=== PATIENT | female | born 1960 | race American Indian/Alaskan Native ===

== ENCOUNTER → 2019-02-12 | Outpatient (CLI) | payer OTHER ==
[~2019-02-12] MED LIST: ACET500; ASCO250CH PO; Bactrim Ds Tab1 EACH PO; CYCL10 PO; FISH1000 PO; LEVSOD50 PO; Norco 5-325 Ta1 EACH PO; VIRT PO; Zofran4 MG PO
== END | disposition home or self-care (01) ==
LOC: LAB SHORT 08:18 → PLD 08:18
DX: R93.89 Abnormal findings on diagnostic imaging of other specified body structures (principal)
CPT/HCPCS: 88305

== ENCOUNTER 2019-08-24 21:28 | Emergency (ER) | payer OTHER ==
[~2019-08-24] VITALS: Ht 154.9 cm; Wt 70.8 kg
[2019-08-24] MEDS ORDERED: B Complex-Foli1 EACH PO (21:47)
[2019-08-24] MEDS ORDERED: LEVSOD25 PO (21:48)
[2019-08-24] MEDS ORDERED: MONT10T PO (21:48)
[2019-08-24] MEDS ORDERED: ASCO500 PO (21:48)
[2019-08-24 21:54] LABS: BASOPHILS ABSOLUTE AUTO 0.05 K/mm3 (0.00-0.23); BASOPHILS PERCENT AUTO 1 % (0-2); EOSINOPHILS ABSOLUTE AUTO 0.21 K/mm3 (0.00-0.68); EOSINOPHILS PERCENT AUTO 2 % (0-6); Hemoglobin 10.4 g/dL (11.5-16.0); IMMATURE GRAN ABSOLUTE AUTO 0.04 K/mm3 (0.00-0.10); IMMATURE GRAN PERCENT AUTO 0 % (0-1); LYMPHOCYTES ABSOLUTE AUTO 4.12 K/mm3 (0.84-5.20); LYMPHOCYTES PERCENT AUTO 39 % (21-46); MONOCYTES ABSOLUTE AUTO 0.86 K/mm3 (0.16-1.47); MONOCYTES PERCENT AUTO 8 % (4-13); Mean Corpuscular HGB 19.1 pg (26.0-34.0); Mean Corpuscular HGB Conc 30.6 g/dL (31.5-36.5); Mean Corpuscular Volume 63 fL (80-100); Mean Platelet Volume 9.5 fL (9.1-12.4); NEUTROPHILS ABSOLUTE AUTO 5.38 K/mm3 (1.96-9.15); NEUTROPHILS PERCENT AUTO 50 % (41-73); Platelet Count 335 K/mm3 (150-400); RDW Coefficient Variation 18.6 % (11.7-14.2); RDW Standard Deviation 37.2 fL (35.1-46.3); Red Blood Cell Count 5.44 M/mm3 (3.80-5.20); White Blood Cell Count 10.66 K/mm3 (4.00-11.30)
[2019-08-24 22:22] LABS: Alanine Aminotransfer (ALT/SGP 23 U/L (12-78); Albumin/Globulin Ratio 1.1 (0.8-1.8); Alk Phos 65 U/L (50-136); Anion Gap 6 mmol/L (6-16); Aspartate Aminotrans (AST/SGOT 14 U/L (12-37); Bilirubin, Total 0.5 mg/dL (0.1-1.0); Blood Urea Nitrogen 17 mg/dL (8-24); Bun/Creatinine Ratio 27.8 (12.0-20.0); CO2, Blood 26 mmol/L (21-32); Calcium, Blood 8.6 mg/dL (8.5-10.1); Chloride, Blood 109 mmol/L (98-108); Creatinine, Blood 0.61 mg/dL (0.40-1.00); Globulin, Blood 3.6 g/dL (2.2-4.0); Glomerular Filtration Rate >60 (60-); Glucose, Blood 116 mg/dL (70-99); Potassium, Blood 4.1 mmol/L (3.5-5.5); Sodium, Blood 141 mmol/L (136-145); Total Protein, Blood 7.6 g/dL (6.4-8.2); Troponin I <0.015 ng/mL (0.000-0.040)
== END 2019-08-24 23:29 | disposition home or self-care (01) ==
LOC: ER 21:28
PROVIDERS: Emergency Medicine
DX: R07.9 Chest pain, unspecified (principal); E03.9 Hypothyroidism, unspecified; D64.9 Anemia, unspecified; Z79.899 Other long term (current) drug therapy
CPT/HCPCS: 36415; 71045; 80053; 84484; 85025; 85379; 93005; 93010; 99285-25; A9270-GY

== ENCOUNTER 2020-05-08 02:28 | Emergency (ER) | payer OTHER ==
[~2020-05-08] VITALS: Ht 154.9 cm; Wt 70.3 kg
[~2020-05-08 02:28] MED LIST changes: +ASCO500 PO; +B Complex-Foli1 EACH PO; +LEVSOD25 PO; +MONT10T PO
[2020-05-08] MEDS ORDERED: AMOCLA875 PO (02:54)
== END 2020-05-08 03:11 | disposition home or self-care (01) ==
LOC: ER 02:28
DX: S61.451A Open bite of right hand, initial encounter (principal); E03.9 Hypothyroidism, unspecified; Z79.899 Other long term (current) drug therapy; W55.01XA Bitten by cat, initial encounter
CPT/HCPCS: 99283

== ENCOUNTER 2020-07-23 10:03 | Emergency (ER) | payer OTHER ==
[~2020-07-23] VITALS: Ht 154.9 cm; Wt 70.3 kg
[~2020-07-23 10:03] MED LIST changes: +AMOCLA875 PO
[2020-07-23 10:21] LABS: Source, Urine Clean Catch
[2020-07-23 10:33] LABS: Bilirubin, Urine Neg (Neg); Blood, Urine 2+ (Neg); Glucose Qualitative, Urine Neg (Neg); Ketones, Urine Neg (Neg); Leukocyte Esterase, Urine Neg (Neg); Nitrite, Urine Neg (Neg); Protein, Urine Neg (Neg); Urobilinogen, Urine NORM (Normal)
[2020-07-23 10:42] LABS: Appearance, Urine Clear (Clear); Color, Urine Yellow (P-Yellow)
[2020-07-23 10:43] LABS: Bacteria Few /hpf; Squamous Epithelial Cells Rare /hpf (Few); White Blood Cells, Urine 0-2 /hpf (0-5)
[2020-07-23 10:46] LABS: BASOPHILS ABSOLUTE AUTO 0.03 K/mm3 (0.00-0.23); BASOPHILS PERCENT AUTO 0 % (0-2); EOSINOPHILS ABSOLUTE AUTO 0.43 K/mm3 (0.00-0.68); EOSINOPHILS PERCENT AUTO 3 % (0-6); Hematocrit 33.8 % (33.0-51.0); Hemoglobin 10.5 g/dL (11.5-16.0); IMMATURE GRAN ABSOLUTE AUTO 0.03 K/mm3 (0.00-0.10); IMMATURE GRAN PERCENT AUTO 0 % (0-1); LYMPHOCYTES ABSOLUTE AUTO 2.53 K/mm3 (0.84-5.20); LYMPHOCYTES PERCENT AUTO 20 % (21-46); MONOCYTES ABSOLUTE AUTO 0.91 K/mm3 (0.16-1.47); MONOCYTES PERCENT AUTO 7 % (4-13); Mean Corpuscular HGB 19.1 pg (26.0-34.0); Mean Corpuscular HGB Conc 31.1 g/dL (31.5-36.5); Mean Corpuscular Volume 62 fL (80-100); Mean Platelet Volume 9.5 fL (9.1-12.4); NEUTROPHILS ABSOLUTE AUTO 8.74 K/mm3 (1.96-9.15); NEUTROPHILS PERCENT AUTO 69 % (41-73); Platelet Count 270 K/mm3 (150-400); RDW Coefficient Variation 18.1 % (11.7-14.2); RDW Standard Deviation 35.5 fL (35.1-46.3); Red Blood Cell Count 5.49 M/mm3 (3.80-5.20); White Blood Cell Count 12.67 K/mm3 (4.00-11.30)
[2020-07-23 11:06] LABS: Alanine Aminotransfer (ALT/SGP 38 U/L (12-78); Albumin, Blood 3.8 g/dL (3.4-5.0); Albumin/Globulin Ratio 0.9 (0.8-1.8); Alk Phos 67 U/L (50-136); Anion Gap 6 mmol/L (6-16); Aspartate Aminotrans (AST/SGOT 27 U/L (12-37); Bilirubin, Total 0.9 mg/dL (0.1-1.0); Blood Urea Nitrogen 9 mg/dL (8-24); Bun/Creatinine Ratio 17.4 (12.0-20.0); CO2, Blood 25 mmol/L (21-32); Calcium, Blood 8.8 mg/dL (8.5-10.1); Chloride, Blood 107 mmol/L (98-108); Creatinine, Blood 0.52 mg/dL (0.40-1.00); Globulin, Blood 4.2 g/dL (2.2-4.0); Glomerular Filtration Rate >60 (60-); Glucose, Blood 119 mg/dL (70-99); Potassium, Blood 3.8 mmol/L (3.5-5.5); Sodium, Blood 138 mmol/L (136-145)
[2020-07-23] MEDS ORDERED: METR500 PO (11:36)
[2020-07-23] MEDS ORDERED: CIPR500 PO (11:36)
== END 2020-07-23 11:45 | disposition home or self-care (01) ==
LOC: ER 10:03
PROVIDERS: Emergency Medicine
DX: K57.32 Diverticulitis of large intestine without perforation or abscess without bleeding (principal); Z79.899 Other long term (current) drug therapy; E03.9 Hypothyroidism, unspecified
CPT/HCPCS: 36415; 74177; 80053; 81001; 83690; 85025; 96374-59; 96375; 99284-25; J2405; J3010; Q9967

== ENCOUNTER → 2020-11-15 | Outpatient (CLI) | payer OTHER ==
[~2020-11-15] MED LIST changes: +CIPR500 PO; +METR500 PO
[2020-11-16 12:10] LABS: HPV 16 Negative (Negative); HPV 18 Negative (Negative); HPV OTHER HR TYPES Negative (Negative)
== END | disposition home or self-care (01) ==
LOC: LAB SHORT 12:28 → LAB 12:28
PROVIDERS: Physician Assistant
DX: Z01.419 Encounter for gynecological examination (general) (routine) without abnormal findings (principal)
CPT/HCPCS: 87624; G0123

== ENCOUNTER → 2020-12-29 | Outpatient (CLI) | payer OTHER ==
[2020-12-29 18:18] LABS: Adenovirus F 40/41 Not Detected (NOT DETECT); Astrovirus Not Detected (NOT DETECT); Campylobacter Sp Not Detected (NOT DETECT); Cryptosporidium Not Detected (NOT DETECT); Cyclospora Cayetanensis Not Detected (NOT DETECT); E. Coli O157 Not Detected (NOT DETECT); Entamoeba Histolytica Not Detected (NOT DETECT); Enteroaggregative E. coli-EAEC Not Detected (NOT DETECT); Enteropathogenic E. coli-EPEC Not Detected (NOT DETECT); Enterotoxigenic E. coli-ETEC Not Detected (NOT DETECT); Giardia Lamblia Not Detected (NOT DETECT); Norovirus GI/GII Not Detected (NOT DETECT); Plesiomonas Shigelloides Not Detected (NOT DETECT); Rotavirus A Not Detected (NOT DETECT); Salmonella Sp Not Detected (NOT DETECT); Sapovirus Not Detected (NOT DETECT); Shiga Toxin-prod E. coli-STEC Not Detected (NOT DETECT); Shigella/Enteroin E. coli-EIEC Not Detected (NOT DETECT); Vibrio Cholerae Not Detected (NOT DETECT); Vibrio Sp Not Detected (NOT DETECT); Yersinia Enterocolitica Not Detected (NOT DETECT)
[2020-12-30 09:18] LABS: Stool Occult Bld Immuno 1 Negative (NEGATIVE)
== END ==
LOC: LAB SHORT 11:00 → LAB 11:00
PROVIDERS: Physician Assistant Surgical
DX: K92.1 Melena (principal)
CPT/HCPCS: 0097U; 82274

== ENCOUNTER 2021-02-20 07:37 | Day surgery (SDC) | payer OTHER ==
[~2021-02-20] VITALS: Ht 154.9 cm; Wt 67.1 kg
[~2021-02-20 07:37] MED LIST changes: +IRON18 MG PO; +Vitamin D1000 UNI1 PO
--- NOTE | 2021-02-20 08:17 | NUR ---
PT AMBULATES TO [facility] STEADY GAIT. REPORTS NPO, COMPLETED PREP DIRECTED. History, Chart, Medications and Allergies reviewed before start of procedure. Lungs clear T/O to Auscultation. Patient States Post-Procedure ride home has been arranged.
--- NOTE | 2021-02-20 09:19 | NUR ---
02/20/21 0919 Sohan Das PATIENT DETERMINED TO BE ASA APPROPRIATE FOR PROPOFOL SEDATION PRIOR TO START OF PROCEDURE BY DR. WALLACE. 3-LEAD EKG REVIEWED WITH PHYSICIAN PRIOR TO START OF PROCEDURE. Patient to ENDO 1History, Chart, Medications and Allergies reviewed before start of procedure. MONITOR INTACT WITH CONTINUOUS PULSE OXIMETRY AND INTERMITTENT BP. O2 VIA N/C INTACT THROUGHOUT SEDATION/PROCEDURE.
--- NOTE | 2021-02-20 10:05 | NUR ---
Discharge instructions reviewed with patient. Patient verbalizes understanding. Copy given to patient to take home. PT TOLERATED PO JUICE WELL. NO C/O. Discharged via wheelchair to private car for ride home.
== END 2021-02-20 10:10 | disposition home or self-care (01) ==
LOC: ORSCMMR 07:37 → ORD 09:00 → ORSCMMR 09:00 → ORSCSDS 09:00 → ORSCMMR 10:10
PROVIDERS: Internal Medicine Gastroenterology
PROC: 0DBK8ZX Excision of Ascending Colon, Via Natural or Artificial Opening Endoscopic, Diagnostic (ICD-10-PCS; principal; 2021-02-20 09:00)
PROC: 0DBH8ZX Excision of Cecum, Via Natural or Artificial Opening Endoscopic, Diagnostic (ICD-10-PCS; principal; 2021-02-20 09:00)
PROC: 0DBN8ZX Excision of Sigmoid Colon, Via Natural or Artificial Opening Endoscopic, Diagnostic (ICD-10-PCS; principal; 2021-02-20 09:00)
DX: Z12.11 Encounter for screening for malignant neoplasm of colon (principal); D12.0 Benign neoplasm of cecum; D12.2 Benign neoplasm of ascending colon; D12.5 Benign neoplasm of sigmoid colon; K57.30 Diverticulosis of large intestine without perforation or abscess without bleeding; E03.9 Hypothyroidism, unspecified; Z79.899 Other long term (current) drug therapy
CPT/HCPCS: 88305; J2704; J7120